=== PATIENT | female | born 2000 | race Caucasian/White ===

== ENCOUNTER 2020-12-20 04:25 | Outpatient (CLI) | payer SELFPAY ==
[~2020-12-20] VITALS: Ht 167.6 cm; Wt 81.4 kg
--- NOTE | 2020-12-20 04:25 | NUR ---
PT TO UNIT VIA EMS DUE TO COMPLAINTS OF SEVERE LEFT SIDED FLANK PAIN THAT RADIATES TO DOWN LEFT LEG. ON ARRIVAL PT CRYING AND MOANING, GRABBING TO LEFT SIDE, PT STATES PAIN IS CONSTANT AND BEGAN AT APPROXIMATELY 0200 THIS MORNING. EMS STATES THAT ON ARRIVAL TO HER HOME SHE WAS VOMITTING AND COMPLAINING OF THE SAME PAIN. EN ROUTE PT RECEIVED 50MCG OF [place] AT 0405 AND AN ADDITIONAL 50MCG AT 0415, WITHOUT RELIEF. PT ABLE TO STAND AND TRANSFER TO LABOR BED. PT SHAKING, SVE CLOSED. PT VOMITING AND UNABLE TO SIT IN BED DUE TO PAIN. EFM X2 APPLIED, VS OBTAINED.
[2020-12-20 05:00] VITALS: BP 139/86; PULSE 85; TEMP 97.6
--- NOTE | 2020-12-20 05:48 | NUR ---
roof technician at bedside for testing. [id number]: EFM removed for ultrasound.
[2020-12-20 06:35] LABS: BASO % 0.2 % (0.0-2.0); EOS % 0.4 % (0-4.0); GRAN % 82.3 % (42.2-75.2); HEMOGLOBIN 10.8 g/dl (12.5-16.0); LYMPH # 0.9 K/mm3 (1.2-3.4); LYMPH % 10.5 % (20.0-51.0); MEAN CELL VOLUME 91 fl (80.0-100.0); MEAN CORPUSCULAR HEMOGLOBIN 32 pg (27.0-31.0); MEAN CORPUSCULAR HGB CONC 36 g/dl (33.0-37.0); MONO # 0.5 K/mm3 (0.1-0.6); PLATELET COUNT 199 K/mm3 (130-400); RED BLOOD COUNT 3.34 M/mm3 (4.10-5.30); REDCELL DISTRIBUTION WIDTH-CV 11.9 % (11.5-14.5)
[2020-12-20 06:36] LABS: HEMATOCRIT 30.3 % (37.0-47.0)
[2020-12-20 06:52] LABS: COLLECTION METHOD CLEAN CATCH
[2020-12-20 06:56] LABS: ALBUMIN 3.1 gm/dL (3.5-5.0); BILIRUBIN,TOTAL 0.6 mg/dL (0.2-1.2); CALCIUM 8.8 mg/dL (8.4-10.2); CREATININE, serum 0.77 mg/dL (0.57-1.11); TOTAL PROTEIN 5.6 gm/dL (6.2-8.1)
[2020-12-20 06:58] LABS: POTASSIUM 2.8 mmol/L (3.5-4.5)
[2020-12-20 07:06] LABS: AMORPHOUS CRYSTAL Present /uL; MUCOUS Present /lpf; PH 6 (5-8); SQUAMOUS EPITHELIAL None Seen /hpf; URINE APPEARANCE Cloudy; URINE BACTERIA None Seen /hpf; URINE BILIRUBIN Negative (NEGATIVE); URINE BLOOD Negative (NEGATIVE); URINE COLOR Yellow; URINE GLUCOSE Negative (NEGATIVE); URINE KETONE 1+ (NEGATIVE); URINE LEUKOCYTE ESTERASE Negative (NEGATIVE); URINE NITRATE Negative (NEGATIVE); URINE PROTEIN(semi-quant) Negative (NEGATIVE); URINE RBC 0-2 /hpf; URINE UROBILINOGEN Negative (NEGATIVE); URINE WBC 0-2 /hpf
[2020-12-20 07:30] VITALS: BP 117/57; PULSE 85; TEMP 98.4
--- NOTE | 2020-12-20 08:40 | NUR ---
Dr. Loza at bedside. Reviews pt hx. Orders for NS with K+, Flexeril, x1 dose of morphine, kpad. Plan to manage pain and d/c for PT. Pt agrees to POC.
== END 2020-12-20 10:15 | disposition home or self-care (01) ==
LOC: LDRO 04:25 → LDR 04:25 → LDRO 10:15
PROVIDERS: Student in an Organized Health Care Education/Training Program
DX: O26.893 Other specified pregnancy related conditions, third trimester (principal); M54.50 Low back pain, unspecified; E87.6 Hypokalemia; Z3A.28 28 weeks gestation of pregnancy
CPT/HCPCS: OP; J2270; J2405; J3480